=== PATIENT | male | born 1970 | race Caucasian/White ===

== ENCOUNTER 2023-12-11 19:19 | Inpatient (IN) | payer BC ==
[~2023-12-11] VITALS: Ht 175.3 cm; Wt 127.2 kg
[2023-12-11 20:36] LABS: BASO % 0.6 % (0.0-1.0); EOS # 0.2 10^3/uL (0.0-0.5); EOS % 2.5 % (0.0-3.0); HEMATOCRIT 45.7 % (42.0-52.0); HEMOGLOBIN 15.7 g/dl (13.5-17.5); LYMPH # 2.4 10^3/uL (1.5-5.0); LYMPH % 34.1 % (24.0-44.0); MEAN CORPUSCULAR HEMOGLOBIN 30.9 pg (27.0-33.0); MEAN CORPUSCULAR HGB CONC 34.4 g/dl (32.0-36.5); MONO # 0.9 10^3/uL (0.0-0.8); MONO % 13.4 % (2.0-8.0); NEUTROPHILS # 3.4 10^3/uL (1.5-8.5); NEUTROPHILS % 49.3 % (36.0-66.0); PLATELET COUNT, AUTOMATED 243 10^3/uL (150-450); RED BLOOD COUNT 5.08 10^6/uL (4.30-6.10); WHITE BLOOD COUNT 6.9 10^3/uL (4.0-10.0)
[2023-12-11 20:57] LABS: C REACTIVE PROTEIN QUANTITATIV < 0.40 MG/DL (<1.0)
[2023-12-11 20:59] LABS: BLOOD UREA NITROGEN 23 MG/DL (9-23); CALCIUM LEVEL 9.2 MG/DL (8.5-10.1); CARBON DIOXIDE LEVEL 26 MMOL/L (20-31); CHLORIDE LEVEL 106 MMOL/L (98-107); CREATININE FOR GFR 0.92 MG/DL (0.70-1.30); GLOMERULAR FILTRATION RATE > 60.0 (>56); GLUCOSE, FASTING 123 MG/DL (60-100); POTASSIUM SERUM 4.1 MMOL/L (3.5-5.1); SODIUM LEVEL 139 MMOL/L (136-145)
[2023-12-11 21:10] LABS: ERYTHROCYTE SEDIMENTATION RATE 10 mm/hr (0-20)
[2023-12-11] MEDS ORDERED: ISOVUE-370 76% 100ML VIAL As Ordered ONE (22:18)
[2023-12-11 22:30] LABS: CK-MB VALUE MASS 2.5 NG/ML (<3.6)
[2023-12-11 22:31] LABS: CPK CREATINE PHOSPHOKINASE 273 U/L (46-171); MB/CK RELATIVE INDEX 0.91 (< OR =4)
[2023-12-11 22:33] LABS: FREE T4 0.98 NG/DL (0.89-1.76)
[2023-12-11 22:34] LABS: THYROID STIMULATING HORMONE 4.108 uIU/ML (0.55-4.78)
[2023-12-11] MEDS: FUROSEMIDE 40MG/4ML VIAL IV ONE (22:52)
[2023-12-11 23:09] LABS: CK-MB VALUE MASS 2.3 NG/ML (<3.6); MB/CK RELATIVE INDEX 0.89 (< OR =4)
[2023-12-11] MEDS ORDERED: FAMO20TA5 PO (23:46)
[2023-12-11] MEDS ORDERED: AMLO1TAB24 PO (23:46)
[2023-12-11] MEDS ORDERED: VALS1TAB66 PO (23:46)
[2023-12-11] MEDS ORDERED: ROSU5TAB40 PO (23:46)
[2023-12-11] MEDS ORDERED: HOME MED LIST COMPLETE! XX SCH (23:50)
[2023-12-12] MEDS ORDERED: ACETAMINOPHEN TAB 650MG DOSE (2X325MG) PO PRN (00:20)
[2023-12-12] MEDS: VALSARTAN 80 MG TAB (DIOVAN) PO SCH (01:15)
[2023-12-12] MEDS: amLODIPine 5 MG TAB PO SCH (01:15)
[2023-12-12 01:59] VITALS: BP 165/111; TEMP 97.3; O2SAT 96
[2023-12-12 04:00] VITALS: BP 124/82; TEMP 97.7; O2SAT 94
[2023-12-12] MEDS ORDERED: FUROSEMIDE 40MG/4ML VIAL IV SCH (09:00)
[2023-12-12] MEDS: metOLazone 5 MG TAB PO ONE (09:34)
[2023-12-12 09:36] VITALS: BP 135/82
[2023-12-12] MEDS: MAGNESIUM OXIDE 400MG TAB (MAG-OX) PO SCH (10:16)
[2023-12-12] MEDS: FAMOTIDINE 20 MG TAB PO SCH (10:17)
[2023-12-12] MEDS: ENOXAPARIN 40MG/0.4ML SYRINGE (J1650 PER 10MG) SC SCH (10:17)
[2023-12-12] MEDS: POTASSIUM CHLORIDE 10MEQ SR TABLET PO SCH (10:18)
[2023-12-12] MEDS: FUROSEMIDE 40MG/4ML VIAL IV SCH (10:19)
[2023-12-12 10:42] LABS: CHOLESTEROL RISK RATIO 5.76 (<5); HDL CHOLESTEROL 35.4 MG/DL (>40); NON-HDL-C 168.6 MG/DL
[2023-12-12 12:00] VITALS: BP 156/93; TEMP 97.7; O2SAT 93
[2023-12-12 17:25] LABS: IONIZED CALCIUM 4.8 MG/DL (4.5-5.3)
[2023-12-12 17:55] LABS: ALBUMIN 4.1 G/DL (3.2-5.2); BLOOD UREA NITROGEN 22 MG/DL (9-23); CALCIUM LEVEL 9.7 MG/DL (8.5-10.1); CARBON DIOXIDE LEVEL 28 MMOL/L (20-31); CHLORIDE LEVEL 101 MMOL/L (98-107); CREATININE FOR GFR 1.02 MG/DL (0.70-1.30); GLOMERULAR FILTRATION RATE > 60.0 (>56); GLUCOSE, FASTING 131 MG/DL (60-100); POTASSIUM SERUM 3.9 MMOL/L (3.5-5.1); SODIUM LEVEL 137 MMOL/L (136-145)
[2023-12-12 20:00] VITALS: BP 150/99; TEMP 98.2; O2SAT 100
[2023-12-12] MEDS: ROSUVASTATIN 10 MG TAB (CRESTOR) PO SCH (20:38)
[2023-12-13 04:00] VITALS: BP 154/99; TEMP 97.7; O2SAT 98
[2023-12-13 05:57] LABS: HEMATOCRIT 48.5 % (42.0-52.0); HEMOGLOBIN 16.9 g/dl (13.5-17.5); MEAN CORPUSCULAR HEMOGLOBIN 30.7 pg (27.0-33.0); MEAN CORPUSCULAR HGB CONC 34.8 g/dl (32.0-36.5); MEAN CORPUSCULAR VOLUME 88.2 fl (80.0-96.0); PLATELET COUNT, AUTOMATED 255 10^3/uL (150-450); WHITE BLOOD COUNT 8.3 10^3/uL (4.0-10.0)
[2023-12-13 06:45] LABS: ALKALINE PHOSPHATASE 60 U/L (46-116); ALT/SGPT 83 U/L (7.0-40); AST/SGOT 40 U/L (<34); BILIRUBIN,TOTAL 0.8 MG/DL (0.3-1.2); BLOOD UREA NITROGEN 27 MG/DL (9-23); CALCIUM LEVEL 9.7 MG/DL (8.5-10.1); CARBON DIOXIDE LEVEL 32 MMOL/L (20-31); CHLORIDE LEVEL 98 MMOL/L (98-107); CREATININE FOR GFR 1.29 MG/DL (0.70-1.30); GLOMERULAR FILTRATION RATE > 60.0 (>56); GLUCOSE, FASTING 148 MG/DL (60-100); POTASSIUM SERUM 3.5 MMOL/L (3.5-5.1); SODIUM LEVEL 137 MMOL/L (136-145); TOTAL PROTEIN 7.3 G/DL (5.7-8.2)
[2023-12-13] MEDS ORDERED: MAGN500T2 PO (08:37)
[2023-12-13] MEDS ORDERED: LASI40TA9 PO (08:37)
[2023-12-13] MEDS ORDERED: POTA-298 PO (08:37)
[2023-12-13 08:41] LABS: MAGNESIUM LEVEL 2.1 MG/DL (1.8-2.4)
[2023-12-13] MEDS ORDERED: HYDR50TA46 PO (08:41)
[2023-12-13] MEDS: MAGNESIUM OXIDE 400MG TAB (MAG-OX) PO ONE (09:09)
[2023-12-13] MEDS: metOLazone 5 MG TAB PO ONE (09:10)
[2023-12-13] MEDS: POTASSIUM CHLORIDE 10MEQ SR TABLET PO SCH (09:10)
[2023-12-13] MEDS: **hydrALAZINE HCL** 25 MG TAB PO ONE ×2 (09:13→10:22)
[2023-12-13] MEDS: FUROSEMIDE 40MG/4ML VIAL IV ONE (10:11)
[2023-12-13] MEDS ORDERED: ISOS30TAB PO (10:13)
[2023-12-13 10:22] VITALS: BP 159/103
[2023-12-13] MEDS: ISOSORBIDE DIN. (ISORDIL) 30 MG TAB PO SCH (10:22)
[2023-12-13] MEDS ORDERED: **hydrALAZINE** 50 MG TAB PO SCH (16:00)
== END 2023-12-13 11:46 | disposition home or self-care (01) | DRG 199 ==
LOC: M ED 19:19 → M ED INP 12-12 00:19 → M MSPAV 12-12 01:30
PROVIDERS: ADMIT Preventive Medicine Undersea and Hyperbaric Medicine; ATTEND General Practice
PROC: B246ZZZ Ultrasonography of Right and Left Heart (ICD-10-PCS; principal; 2023-12-12)
DX: I16.0 Hypertensive urgency (principal); E78.5 Hyperlipidemia, unspecified; G47.33 Obstructive sleep apnea (adult) (pediatric); K21.9 Gastro-esophageal reflux disease without esophagitis; E66.9 Obesity, unspecified; Z91.148 Patient's other noncompliance with medication regimen for other reason; R60.0 Localized edema; R73.01 Impaired fasting glucose; I10 Essential (primary) hypertension; Z79.899 Other long term (current) drug therapy